=== PATIENT | male | born 1990 | race Caucasian/White ===

== ENCOUNTER 2021-04-25 08:21 | Emergency (ER) | payer SELFPAY ==
[~2021-04-25] VITALS: Ht 182.9 cm; Wt 86.8 kg
[2021-04-25] MEDS ORDERED: KETOROLAC TROMETHAMINE 30 MG/ML VIAL IV STA (09:19)
[2021-04-25] MEDS ORDERED: NAPROSYN500 MG PO (09:37)
== END 2021-04-25 09:41 | disposition home or self-care (01) ==
LOC: FSED 08:51
DX: S83.92XA Sprain of unspecified site of left knee, initial encounter (principal); Z91.018 Allergy to other foods
CPT/HCPCS: 99283